=== PATIENT | male | born 1995 | race Caucasian/White ===

== ENCOUNTER 2022-04-16 08:00 | Outpatient (CLI) | payer OTHER ==
[2022-04-16 18:10] LABS: INFECTIOUS MONONUCLEOSIS NEGATIVE (Negative)
== END 2022-04-16 23:59 | disposition home or self-care (01) ==
LOC: LAB.N 08:00
PROVIDERS: ATTEND Nurse Practitioner
DX: R59.1 Generalized enlarged lymph nodes (principal)
CPT/HCPCS: 86308